=== PATIENT | male | born 1940 | race Two or more races ===

== ENCOUNTER → 2020-12-01 | Outpatient (CLI) | payer OTHER ==
[~2020-12-01] MED LIST: LIDOCAINE 2%HCL (LOCAL ANESTH.) INJ 20ML MDV ONE
== END | disposition home or self-care (01) ==
LOC: US 10:25
PROVIDERS: ATTEND Orthopaedic Surgery Adult Reconstructive Orthopaedic Surgery
DX: R22.41 Localized swelling, mass and lump, right lower limb (principal); D49.2 Neoplasm of unspecified behavior of bone, soft tissue, and skin
CPT/HCPCS: 20206; 76881; 76942